=== PATIENT | male | born 1935 | race Two or more races ===

== ENCOUNTER 2016-07-04 17:04 | Inpatient (IN) | payer OTHER, MEDICAID ==
[~2016-07-04] VITALS: Ht 165.1 cm; Wt 58.1 kg
--- NOTE | 2016-07-04 17:13 | NUR ---
BIBPA FROM SNF DUE TO HIGH BLOOD SUGAR, BS UPON ARRIVAL IS GREATER THAN 600. PATIENT IS ALERT HOWEVER NOTED TO HAVE ALTERED MENTAL STATUS. APEARS IN NO APPARENT DISTRESS,. RESPIRATION EVEN AND UNLABORED. NO EVIDENCE OF PAIN OR DISCOMFORT. AFBRILE.PATIENT NOTED WITH RUIGHT WRSIT G 24 IV INTACT. GOWNED -PT AND PLACED ON TELE MONITOR- NOTED TO BE TACHYCARDIC. COMFORT MEASURES INIATED. AWAITING FOR MD YAÑEZ
--- NOTE | 2016-07-04 17:15 | NUR ---
IV ACCESSED TO RIGHT A C20. BLOOD SAMPLE SENT TO LAB
[2016-07-04] MEDS ORDERED: IV SET PRIMARY PUMP SET 1 EA INFUS.SET MC ONE ×5 (17:22→20:36)
[2016-07-04] MEDS ORDERED: IV NS 0.9% 500 ML IV ONE ×2 (17:22→18:32)
[2016-07-04] MEDS ORDERED: IV NS 0.9% 500 ML BAG IV ONE ×2 (17:30→18:30)
--- NOTE | 2016-07-04 17:37 | NUR ---
URINE SAMPLE SENT TO LAB
[2016-07-04 17:39] LABS: BASOPHILS # (AUTO) 0.1 /CMM (0.0-0.2); BASOPHILS % (AUTO) 0.9 % (0.0-2.0); HEMATOCRIT 44 % (39-51); HEMOGLOBIN 14.5 g/dL (13.5-17.5); LYMPHOCYTES # (AUTO) 0.3 /CMM (0.8-4.8); LYMPHOCYTES % (AUTO) 2.5 % (20.0-44.0); MEAN CORPUSCULAR HEMOGLOBIN 32 PG (26.0-33.0); MEAN CORPUSCULAR HGB CONC 33 g/dl (31.0-36.0); MEAN CORPUSCULAR VOLUME 98 fL (80-96); MONOCYTES # (AUTO) 0.2 /CMM (0.1-1.30); NEUTROPHILS # (AUTO) 11.8 /CMM (1.8-8.9); NEUTROPHILS % (AUTO) 94.6 % (43.0-81.0); PLATELET COUNT (AUTO) 321 /CMM (150-450); RDW COEFFICIENT OF VARIATION 13.7 (11.5-15.0); WHITE BLOOD COUNT (AUTO) 12.4 K/uL (4.3-11.0)
--- NOTE | 2016-07-04 17:42 | NUR ---
MD HOFFMAN AT BEDSIDE
--- NOTE | 2016-07-04 17:42 | NUR ---
CREATIVE ART THERAPIST AT FOR BLOOD CULTURE
--- NOTE | 2016-07-04 17:55 | NUR ---
CHEST XRAY AT BEDSIDE FOR CHEST XRAY
[2016-07-04 17:56] LABS: APPEARANCE,URINE Clear (CLEAR); BILIRUBIN,URINE Negative (NEGATIVE); BLOOD, URINE Trace-intact Ery/uL (NEGATIVE); COLOR,URINE Yellow (YELLOW); KETONES,URINE 40 (NEGATIVE); LEUKOCYTE ESTERASE ,URINE Negative (NEGATIVE); NITRITE, URINE Positive (NEGATIVE); PH,URINE 5.5 (5.0-8.0); PROTEIN,URINE Negative (NEGATIVE); UGLUCOSE >=1000 mg/dL (NEGATIVE); UROBILINOGEN,URINE 0.2 EU/dL (0.2)
--- NOTE | 2016-07-04 18:03 | NUR ---
PT WAS TAKEN TO CT FOR HEAD CT
[2016-07-04 18:04] LABS: ALANINE AMINOTRANSFERASE 17 U/L (12-78); ALKALINE PHOSPHATASE 121 U/L (46-116); ASPARTATE AMINOTRANSFERASE 12 U/L (15-37); BILIRUBIN,DIRECT 0.1 mg/dL (0.0-0.2); BILIRUBIN,TOTAL 0.6 mg/dL (0.2-1.0); CARBON DIOXIDE 27 mmol/L (21-32); CHLORIDE 89 mmol/L (98-107); CREATININE 1.6 mg/dL (0.6-1.3); INR 1.06 (0.87-1.13); POTASSIUM 3.9 mmol/L (3.5-5.1); SODIUM SERUM 130 mmol/L (136-145); TOTAL PROTEIN, SERUM 6.8 g/dL (6.4-8.2); TROPONIN I 0.118 ng/mL (0.00-0.056); UREA NITROGEN, BLOOD 41 mg/dL (7-18)
[2016-07-04 18:07] LABS: GLUCOSE 707 mg/dL (74-106)
[2016-07-04 18:10] LABS: ADD URINE CULTURE YES; BACTERIA,URINE Many /HPF (None Seen); RBC,URINE 0-2 /HPF (0-2)
--- NOTE | 2016-07-04 18:10 | NUR ---
PT STILL IN CT
[2016-07-04 18:11] LABS: SQUAMOUS EPITHELIAL CELL,UR Few /HPF (None Seen)
[2016-07-04 18:12] LABS: LACTIC ACID 3.6 mmol/L (0.4-2.0)
--- NOTE | 2016-07-04 18:17 | NUR ---
CALLED NURSING SUP. FOR ICU BED
[2016-07-04] MEDS ORDERED: AZTREONAM 1 G in IV NS 0.9% 100 ML IV ONE (18:30)
[2016-07-04] MEDS ORDERED: LEVOFLOXACIN 750 MG /D5W 150ML 150 ML IV ONE ×2 (18:30→18:32)
[2016-07-04] MEDS ORDERED: IV SET PRIMARY 1 EA INFUS.SET MC ONE (18:33)
[2016-07-04 18:36] LABS: ABG PCO2 30.3 mmHg (35.0-45.0); ABG PH 7.485 (7.350-7.450); ABG PO2 33.5 mmHg (75.0-100.0); ABG TOTAL HEMOGLOBIN 14.8 G/dL (13.5-18.0); MetHb 0.5 % (0.0-1.5); VENT MODE, BG ROOM AIR
[2016-07-04] MEDS ORDERED: IV PREMIX 0.45% NS + KCL 1,000 ML IV ONE (19:04)
[2016-07-04] MEDS ORDERED: IV NS 0.9% 100 ML IV ONE (19:11)
[2016-07-04] MEDS ORDERED: INSULIN REGULAR, HUMAN 100 UNIT/ML 10 ML VIAL ONE (19:12)
[2016-07-04] MEDS ORDERED: INSULIN REGULAR, HUMAN 100 UNIT in IV NS 0.9% 99 ML IV PRN ×2 (19:30)
--- NOTE | 2016-07-04 19:35 | NUR ---
ELIANA HILLMAN SPOKE TO [facility] REGARDING PT ADMISSION.
--- NOTE | 2016-07-04 19:46 | NUR ---
REPOTY GIVEN TO NURSE ED
--- NOTE | 2016-07-04 19:57 | NUR ---
REPORT CALLED TO POT BUILDER KATHY. WILL TRANSPORT PT VIA ACLS PRTOCOL.
[2016-07-04 20:30] VITALS: BP 129/62
[2016-07-04] MEDS ORDERED: INSULIN REGULAR, HUMAN 100 UNIT/ML 3 ML VIAL SQ PRN (20:30)
[2016-07-04] MEDS ORDERED: ONDANSETRON HCL/PF 4 MG/2 ML VIAL IVP PRN (20:30)
[2016-07-04] MEDS ORDERED: MAGNESIUM HYDROXIDE 30 ML UDC PO PRN (20:30)
[2016-07-04] MEDS ORDERED: DEXTROSE 50%-WATER 50 ML DISP.SYRIN IV PRN (20:30)
[2016-07-04] MEDS ORDERED: MAG HYDROX/AL HYDROX/SIMETH 30 ML UDC PO PRN (20:30)
[2016-07-04] MEDS ORDERED: ACETAMINOPHEN 325 MG TABLET PO PRN (20:30)
[2016-07-04] MEDS ORDERED: Z GUARD REMEDY 2 OZ OINT TP PRN (20:30)
[2016-07-04] MEDS ORDERED: ACETAMINOPHEN 650 MG/SUPP.RECT RC PRN (20:30)
--- NOTE | 2016-07-04 20:45 | NUR ---
VIDEO SPECIALIST DF PT HAS ORDER FOR [place] CATH INSERTION. PT WITH HX OF BPH. I AM UNABLE TO INSERT [place] CATHETER 2ND ENLARGED PROSTATE.ADMITTING AR[employer] OFFICER AWARE.
[2016-07-04 21:00] VITALS: BP 123/56
[2016-07-04] MEDS ORDERED: AZTREONAM 1 G in IV NS 0.9% 100 ML IV SCH (21:00)
[2016-07-04] MEDS ORDERED: ASPIRIN 300 MG/SUPP.RECT RC ONE (21:00)
[2016-07-04] MEDS ORDERED: VANCOMYCIN 1 GM in IV D5W 250 ML IV ONE (21:00)
[2016-07-04] MEDS: BLOOD SUGAR DIAGNOSTIC 1 EACH STRIP IN SCH (21:09)
[2016-07-04] MEDS: INSULIN REGULAR, HUMAN 100 UNIT/ML 3 ML VIAL SQ PRN (21:11)
--- NOTE | 2016-07-04 21:19 | NUR ---
TABLE OPERATOR DF PT ACCUC HECK OF 407 COVERED WITH REGULAR INSULIN 20 UNITS.PT WILL RECEIVE LEVEMIR ONCE DELIVERED FROM PHARMACY(AWAITING ORDERED MEDS RX AWARE).EULA ACNP AWARE OF BLOOD GLUCOSE LEVELS ORDER TO DC INSULIN GTT. I REVIEWED PT,S HOME MEDS WITH POOJA FORDE.PT IS ALERT TO PERSON, SPEAKS WITH GAQRBLED SPEECH,UNABLE TO VERBALIZE NEEDS. PT FOLLOWS COMMANDS. MOVES RUE WEAKNESS NOTED TO LEFT UPPER EXTREMITY LEFT LOWER LEG. I S/W PT,S CARLEEN WARD @ [phone]. 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 PT ALSO DX WITH LUEKEMIA A FEW MONTHS AGO PT,S PRIMARY MD MUESH IS ONCOLOGISTS AND PT,S PRIMARY MD. PER FAMILY PT IS MORE VERBAL BUT 2ND TO HYPERGLYCEMIA FAMILY OBSERVED MORE AMS THAN NORMAL AND REQUESTED PT BE TRANSFERRED FROM [facility]. VSS. FEVER 99.0 RECTAL ASPIRIN GIVEN TROPONIN MILDLY ELEVATE NSR ON MONTIOR. PT HAS CARDIOLOGY CONSULT IN AM.
[2016-07-04] MEDS: INSULIN DETEMIR 100 UNIT/ML CARTRIDGE SQ SCH (21:43)
[2016-07-04] MEDS: Potassium Chloride 20 MEQ in IV NS 0.9% 1,000 ML IV PRN (21:46)
[2016-07-04 22:00] VITALS: BP 126/71
[2016-07-04] MEDS ORDERED: FEE PK DOSING 1 MIN EA MC ONE (22:09)
[2016-07-04 22:31] VITALS: BP 145/70
[2016-07-04 23:00] VITALS: BP 117/53
[2016-07-04 23:30] VITALS: BP 112/86
[2016-07-05] VITALS (41 sets, daily range): BP systolic 71–136; BP diastolic 42–76
[2016-07-05] MEDS ORDERED: BLOOD SUGAR DIAGNOSTIC 1 EACH STRIP IN SCH
[2016-07-05 00:26] LABS: CALCIUM, SERUM 7.9 mg/dL (8.5-10.1); CREATININE 1.3 mg/dL (0.6-1.3); POTASSIUM 3.7 mmol/L (3.5-5.1)
[2016-07-05 00:38] LABS: TROPONIN I 0.192 ng/mL (0.00-0.056)
[2016-07-05] MEDS: BLOOD SUGAR DIAGNOSTIC 1 EACH STRIP IN SCH ×6 (00:39→21:21)
[2016-07-05] MEDS: INSULIN REGULAR, HUMAN 100 UNIT/ML 3 ML VIAL SQ PRN ×4 (00:41→21:33)
--- NOTE | 2016-07-05 01:11 | NUR ---
CABLE WIRER DF ACCU CHECK OF 291 COVERED WITH 12 UNITS RISS. BMP RESULTED AT 0000.POCKET SETTER LOCKSTITCH CATHERINE AWARE OF RESULTS.VSS.NAD NOTED.
[2016-07-05] MEDS ORDERED: ALBUTEROL FS 2.5 MG/3 ML VIAL.NEB ONE (02:24)
[2016-07-05] MEDS ORDERED: IPRATROPIUM NEB FS 0.5 MG/2.5 ML AMPUL.NEB ONE (02:25)
[2016-07-05] MEDS: IPRATROPIUM NEB FS 0.5 MG/2.5 ML AMPUL.NEB NEB PRN ×2 (02:30→21:22)
--- NOTE | 2016-07-05 02:30 | NUR ---
RN ICUDF PT WITH CONGESTION PRODUCTIVE COUGH OF THICK WHITE/YELLOW SECRETIONS. PT ABLE TO CLEAR SECRETIONS VIA COUGHING. O2 SAT OF 98% VIA O2 N/C @2LPM RHONCHI THROUGHOUT BREATH SOUNDS. PT ADMIN ATROVENT HHN BY RT DOLORES ALBUTEROL HELD 2ND TO TACHYCARDIA OF 115 BPM. VSS.NAD NOTED.
[2016-07-05 05:01] LABS: BASOPHILS % (AUTO) 0.1 % (0.0-2.0); EOSINOPHILS % (AUTO) 0.1 % (0.0-6.0); HEMATOCRIT 43 % (39-51); HEMOGLOBIN 14.1 g/dL (13.5-17.5); LYMPHOCYTES # (AUTO) 0.5 /CMM (0.8-4.8); LYMPHOCYTES % (AUTO) 7.9 % (20.0-44.0); MEAN CORPUSCULAR HEMOGLOBIN 32 PG (26.0-33.0); MEAN CORPUSCULAR HGB CONC 33 g/dl (31.0-36.0); MEAN CORPUSCULAR VOLUME 98 fL (80-96); MONOCYTES # (AUTO) 0.2 /CMM (0.1-1.30); MONOCYTES % (AUTO) 2.4 % (2.0-12.0); NEUTROPHILS # (AUTO) 5.9 /CMM (1.8-8.9); NEUTROPHILS % (AUTO) 89.5 % (43.0-81.0); PLATELET COUNT (AUTO) 253 /CMM (150-450); RDW COEFFICIENT OF VARIATION 14.3 (11.5-15.0); RED BLOOD CELL COUNT(AUTO) 4.36 MIL/uL (4.5-6.0); WHITE BLOOD COUNT (AUTO) 6.6 K/uL (4.3-11.0)
[2016-07-05] MEDS: Potassium Chloride 20 MEQ in IV NS 0.9% 1,000 ML IV PRN ×2 (05:10→17:38)
[2016-07-05] MEDS: AZTREONAM 1 G in IV NS 0.9% 100 ML IV SCH ×2 (05:11→17:30)
--- NOTE | 2016-07-05 05:11 | NUR ---
MATERIAL CUTTER DF ACCU CHECK OF 112. NO COVERAGE PER ORDERS. PT MORE ALERT MORE INTERACTIVE THAN PRIOR TO ADMISSION. PT FOLLOWING COMMANDS,VSS. 02 SAT OF 98% PT WITH CONGESTION. MIN SOB WITH ACTIVITY. SHIPPING AND RECEIVING WEIGHER EULA AWARE PT HAS PRN HHN AND CHEST PHYSIOTHERAPY ORDERED.
[2016-07-05 05:20] LABS: CREATININE 1.2 mg/dL (0.6-1.3); MAGNESIUM 1.8 mg/dL (1.8-2.4); PHOSPHORUS 1.2 mg/dL (2.5-4.9); POTASSIUM 3.5 mmol/L (3.5-5.1)
[2016-07-05 05:29] LABS: THYROID STIMULATING HORMONE 0.447 uIU/mL (0.358-3.74)
[2016-07-05] MEDS ORDERED: SECONDARY IV SET 1 EA INFUS.SET MC ONE ×3 (05:29→14:06)
[2016-07-05 06:38] LABS: BAND % (MANUAL) 9 % (0.0-5.0); LYMPHOCYTES % (MANUAL) 5 % (16-48); MONOCYTES % (MANUAL) 4 % (0-11.0); NEUTROPHILS % (MANUAL) 82 (42-76); PLATELET ESTIMATE ADEQUATE
[2016-07-05 06:39] LABS: ANISOCYTOSIS 1+
--- NOTE | 2016-07-05 07:15 | NUR ---
DIRECTOR OF EMPLOYEE DEVELOPMENT Bedside report received from [facility] nurse Morfin RN. Pt admitted to icu for ALOC, HHH, NSTEMI. Pt awake, aloc, does not speak, does not follow commands, pupils PERRLA. Pt moves RUE but LUE is flacid, and pt withdraws ble. Pt on 2L n/c tolerating well, spo2 97%. Pt npo at this time, bowel sounds present. Bue and ble pulses present. Pt does not have gregorio and is incontinent. Pt has excoriation in perineum and sacrum. vitals stable. no signs of acute distress at this time. will continue to monitor.
[2016-07-05] MEDS ORDERED: PRAM0.122 PO (08:14)
[2016-07-05] MEDS ORDERED: IPRA3AMP IH (08:14)
[2016-07-05] MEDS ORDERED: MULT-24 PO (08:14)
[2016-07-05] MEDS ORDERED: OMEP20CA10 PO (08:14)
[2016-07-05] MEDS ORDERED: FURO-144 PO (08:14)
[2016-07-05] MEDS ORDERED: AMIN30LI4 PO (08:14)
[2016-07-05] MEDS ORDERED: METF500T4 PO (08:14)
[2016-07-05] MEDS ORDERED: PRED20TA PO (08:14)
[2016-07-05] MEDS ORDERED: ZOLP5TAB7 PO (08:14)
[2016-07-05] MEDS ORDERED: ROSU10TA25 PO (08:14)
[2016-07-05] MEDS ORDERED: ASCO500T9 PO (08:14)
[2016-07-05] MEDS ORDERED: LEVA0.31 IH (08:14)
[2016-07-05] MEDS ORDERED: IPRA12.9 IH (08:14)
[2016-07-05] MEDS ORDERED: ELTR75TA PO (08:14)
[2016-07-05] MEDS ORDERED: TAMS0.4C34 PO (08:14)
[2016-07-05] MEDS ORDERED: ACET-868 PO (08:14)
[2016-07-05] MEDS ORDERED: METO25TA3 PO (08:14)
[2016-07-05] MEDS ORDERED: DOCU-270 PO (08:14)
[2016-07-05] MEDS ORDERED: INSU100V3 SQ (08:14)
[2016-07-05] MEDS ORDERED: BLOO-668 IN (08:14)
[2016-07-05] MEDS ORDERED: POTA20LI4 PO (08:14)
[2016-07-05] MEDS ORDERED: IBRU140C PO (08:14)
--- NOTE | 2016-07-05 08:45 | NUR ---
WOUND CARE CONSULT: PATIENT SEEN AND SKIN ASSESSMENT DONE. PATIENT ALERT, INCONTINENT, NEEDS ASSITS WITH TURNING AND REPOSITIONING DUE TO [place] ZULETA 14, ON HIRAM ISOFLEX ÁLVARO BED. SEE TODAY'S SKIN ASSESSMENT IN PCS ALONG WITH RECOMMENDATIONS. RECOMMEND MOISTURE PROTECTION WITH Z GUARD ORDERED, TURN AND REPOSITION EVERY 2 HRS PATIENT CONDITION PERMITS, OFFLOAD HEELS. ALL DISCUSSED WITH NURSING STAFF. MD IN AGREEMENT WITH PLAN OF CARE. Addendum: 07/05/16 at 0848 by DAVIN NIX WNDNU Amended: Links added.
[2016-07-05] MEDS ORDERED: methylPREDNISolone SOD SUCC 125 MG/2ML VIAL IV SCH (09:00)
[2016-07-05] MEDS: ASPIRIN EC 325 MG TABLET.DR PO SCH ×2 (09:00→09:52)
--- NOTE | 2016-07-05 09:25 | NUR ---
PRODUCE DEPARTMENT SUPERVISOR Dr Emma Oorpeza at bedside assessing pt and udpated on pt status. Md made aware that pt has elevated HR 120s, and pt is aloc. md aware that pt has elevated troponin and 2 loose bm on noc and 1 in am. New orders pending for mg, k and phos replacement per md. other vitals stable. will continue to monitor. Pt to have oncology and cardiology consult per md.
[2016-07-05] MEDS ORDERED: Sodium Phosphate 15 MMOL in IV D5W 250 ML IV ONE (09:30)
[2016-07-05] MEDS ORDERED: POTASSIUM PHOSPHATE MM 15 MMOL in IV D5W 250 ML IV SCH (09:30)
[2016-07-05] MEDS: HYDROGEL DRESSING 90 GM TUBE TP SCH (09:51)
[2016-07-05] MEDS: PANTOPRAZOLE 40 MG VIAL IV SCH (09:51)
--- NOTE | 2016-07-05 10:10 | NUR ---
SHOTBLAST OPERATOR All PO meds held at this time due to pt aloc and inability to swallow. pt high risk for aspiration. charge nurse aware.
--- NOTE | 2016-07-05 10:25 | NUR ---
FINANCE OFFICER network operations technician at bedside doing Echocardiogram. pt tolerating well. vitals stable. will continue to monitor.
[2016-07-05] MEDS ORDERED: ENOXAPARIN SODIUM 60 MG/0.6 ML DISP.SYRIN SQ SCH (10:30)
[2016-07-05] MEDS ORDERED: IV SET PRIMARY PUMP SET 1 EA INFUS.SET MC ONE (10:52)
[2016-07-05] MEDS: Magnesium 1GM/D5W 100ML PREMIX 100 ML IV SCH ×2 (10:57→12:42)
[2016-07-05] MEDS: POTASSIUM PHOSPHATE MM 7.5 MMOL in IV D5W 100 ML IV SCH ×2 (13:55→16:18)
[2016-07-05] MEDS ORDERED: methylPREDNISolone SOD SUCC 125 MG/2ML VIAL IV ONE (14:00)
[2016-07-05] MEDS ORDERED: VANCOMYCIN 1 GM in IV D5W 250 ML IV SCH (15:00)
--- NOTE | 2016-07-05 19:27 | NUR ---
MOTOR AND CONTROLS TESTER Bedside report given to [facility] nurse Zoë MARTINO. Pt asleep, easily arousable. Pt clean and dry. Vitals stable. All lines traced, no signs of acute distress at this time. Transfer pending, endorsed to [facility] nurse.
--- NOTE | 2016-07-05 19:30 | NUR ---
BLIND INSTALLER: PT. RECEIVED WT ALERT AND AWAKE. ON 2L 02 VIA NC WT NO ACUTE DISTRESS. NO C/O PAIN. ABLE TO FOLLOW SIMPLE COMMANDS AND WT GARBLED SPEECH. ON NS WT 20 MEQ KCL RUNNING AT 125ML/HR WT NO S/S OF INFILTRATION ON IV SITE. SR ON MAIL CLERK BILLS. AFEBRILE. ABLE TO COLLECT URINE FOR KETONES VIA CLEAN CATCH. CALLED LAB. FOR SPECIMEN SENIOR DATA DEVELOPER. SAFETY PRECAUTION NOTED. WILL CONTINUE TO MONITOR.
--- NOTE | 2016-07-05 20:56 | NUR ---
Patient is a resident of [facility] [phone], he requires maximum to total assistance with adl's. Will coordinate with [place] block and case maker for any dc planning needs when discharge. Addendum: 07/05/16 at 2055 by NBA ANGELO RN Amended: Links added.
[2016-07-05] MEDS: ALBUTEROL FS 2.5 MG/3 ML VIAL.NEB NEB PRN (21:22)
[2016-07-05] MEDS: INSULIN DETEMIR 100 UNIT/ML CARTRIDGE SQ SCH (21:36)
--- NOTE | 2016-07-05 23:00 | NUR ---
OPERATING ROOM SPECIALIST: REPORT GIVEN TO SALENA ACEVEDO TO TRANSFER PT TO TELE ROOM 312-1.
--- NOTE | 2016-07-05 23:15 | NUR ---
FUR PULLER: PT TRANSFERRED TO ROOM 312-1 IN STABLE CONDITION AND ENDORSED TO SALENA ACEVEDO. A PAIR OF EYEGLASSES WAS ENDORSED WELL. ALL NEEDS MET.
--- NOTE | 2016-07-05 23:30 | NUR ---
SLURRY MAN NOTE: RECEIVED PATIENT FROM ICU IN STABLE CONDITION, NO ACUTE DISTRESS NOTED. BREATHING EVEN AND UNLABORED, NO SOB NOTED. IV TO LAC IN PLACE INFUSING NS WITH 20 MEQ OF KCL AT 125 ML/HR. HL TO RAC ALSO IN PLACE. NO S/S OF HYPER/HYPOGLYCEMIA NOTED. BED LOCKED AND IN LOWEST POSITION, CALL LIGHT IN REACH. WILL CONTINUE TO MONITOR.
[2016-07-06] MEDS: BLOOD SUGAR DIAGNOSTIC 1 EACH STRIP IN SCH ×6 (00:56→21:00)
--- NOTE | 2016-07-06 01:00 | NUR ---
OFFICE SERVICE COORDINATOR NOTE: PATIENT BLOOD SUGAR LEVEL 121 MG/DL, NO INSULIN NEEDED PER SLIDING SCALE. NO S/S OF HYPOGLYCEMIA NOTED. WILL CONTINUE TO MONITOR.
[2016-07-06 04:00] VITALS: BP 108/62
[2016-07-06] MEDS ORDERED: AZTREONAM 1 G VIAL ONE (05:16)
[2016-07-06] MEDS: Potassium Chloride 20 MEQ in IV NS 0.9% 1,000 ML IV PRN ×2 (05:19→18:24)
[2016-07-06] MEDS: INSULIN REGULAR, HUMAN 100 UNIT/ML 3 ML VIAL SQ PRN ×4 (05:25→18:14)
--- NOTE | 2016-07-06 05:30 | NUR ---
CREPING MACHINE OPERATOR HELPER NOTE: PATIENT BLOOD SUGAR LEVEL 170MG/DL, PATIENT TO RECEIVE 4 UNITS OF INSULIN PER SLIDING SCALE. NO S/S OF HYPER/HYPOGLYCEMIA NOTED. PATIENT WITH AZACTAM IV ORDERED, NOT RECEIVED FROM IV DURING TRANSFER. CHECKED WITH ICU AND MEDICATIONS NOT ON THEIR UNIT. AZACTAM MEDICATION PREPARE AND INFUSING PER MD ORDER. WILL CONTINUE TO MONITOR.
[2016-07-06] MEDS ORDERED: IV NS 0.9% 100 ML IV ONE (05:33)
[2016-07-06] MEDS ORDERED: SECONDARY IV SET 1 EA INFUS.SET MC ONE (05:33)
[2016-07-06] MEDS: AZTREONAM 1 G in IV NS 0.9% 100 ML IV SCH ×2 (05:42→18:19)
--- NOTE | 2016-07-06 06:20 | NUR ---
AXLE POLISHER NOTE: PATIENT RESTING IN BED, NO ACUTE DISTRESS NOTED. BREATHING EVEN AND UNLABORED, NO SOB NOTED. IV TO LAC IN PLACE INFUSING NS WITH 20 MEQ OF KCL AT 125 ML/HR. HL TO RAC ALSO IN PLACE. BED LOCKED AND IN LOWEST POSITION, CALL LIGHT IN REACH. WILL ENDORSE TO DAY NURSE TO CONTINUE WITH PLAN OF CARE. Addendum: 07/06/16 at 0631 by CURTIS PIMENTEL RN TELE READING SR 90 WITH PVC
[2016-07-06 06:54] LABS: HEMATOCRIT 36 % (39-51); HEMOGLOBIN 11.7 g/dL (13.5-17.5); LYMPHOCYTES # (AUTO) 0.3 /CMM (0.8-4.8); LYMPHOCYTES % (AUTO) 2.8 % (20.0-44.0); MEAN CORPUSCULAR HEMOGLOBIN 32 PG (26.0-33.0); MEAN CORPUSCULAR HGB CONC 33 g/dl (31.0-36.0); MEAN CORPUSCULAR VOLUME 97 fL (80-96); MONOCYTES # (AUTO) 0.3 /CMM (0.1-1.30); MONOCYTES % (AUTO) 2.7 % (2.0-12.0); NEUTROPHILS # (AUTO) 9.3 /CMM (1.8-8.9); NEUTROPHILS % (AUTO) 94.5 % (43.0-81.0); PLATELET COUNT (AUTO) 171 /CMM (150-450); RDW COEFFICIENT OF VARIATION 14.6 (11.5-15.0); RED BLOOD CELL COUNT(AUTO) 3.71 MIL/uL (4.5-6.0); WHITE BLOOD COUNT (AUTO) 9.9 K/uL (4.3-11.0)
[2016-07-06 07:00] VITALS: BP 128/54
[2016-07-06 07:43] LABS: CALCIUM, SERUM 7.4 mg/dL (8.5-10.1); CREATININE 0.7 mg/dL (0.6-1.3); MAGNESIUM 2.5 mg/dL (1.8-2.4); PHOSPHORUS 2.8 mg/dL (2.5-4.9); POTASSIUM 3.5 mmol/L (3.5-5.1)
--- NOTE | 2016-07-06 07:46 | NUR ---
MILLINERY TEACHER INITIAL NOTES Received patient in bed, asleep, head of bed elevated, no SOB or distress noted, on O2 at 2lpm NC and tolerated well. patient on tele monitor SR with pvc heart rate of 81. IV intact and patent, manisha in lowest position, call light within reach. Will continue to monitor accordingly.
[2016-07-06 08:00] VITALS: BP 113/73
[2016-07-06] MEDS ORDERED: ASPIRIN 300 MG/SUPP.RECT RC SCH (09:00)
[2016-07-06] MEDS: PANTOPRAZOLE 40 MG VIAL IV SCH (09:10)
[2016-07-06] MEDS: ENOXAPARIN SODIUM 60 MG/0.6 ML DISP.SYRIN SQ SCH (09:11)
[2016-07-06] MEDS: HYDROGEL DRESSING 90 GM TUBE TP SCH (09:14)
[2016-07-06 12:00] VITALS: BP 120/49
--- NOTE | 2016-07-06 15:31 | NUR ---
non-admin note- cleared eMar for up-to-date administration of medication. unknown status of administration of medication.
[2016-07-06 16:00] VITALS: BP 115/58
[2016-07-06] MEDS: METOPROLOL SUCCINATE 25 MG TAB.SR.24H PO SCH (16:33)
--- NOTE | 2016-07-06 17:30 | NUR ---
DR. STAHL IN REQUESTING RN CONTACT PT,S ONCOLOGIST FOR HIS RECORDS, WELL TO HAVE PARTNER BRING IN MED BOTTLES FOR REVIEW AND USE-MEDS ESPECIALLY PREDNISONE AND PROMACTA MED.
--- NOTE | 2016-07-06 18:00 | NUR ---
CALL OUT TO PARTNER JOEY GEE-TO BRING MED BOTTLES TONIGHT.
--- NOTE | 2016-07-06 18:25 | NUR ---
JOEY GEE PT,S SPOUSE HERE AND MEDS BROUGHT IN BUT LIST INCOMPLETE.DID HOWEVER BRING IN NON FORMULARY MEDS-CRESTOR,PROMACTA AND OMEPRAZOLE.PPUT IN ENVELOPE AND TO BE LOCKED UP IN PHARM.
--- NOTE | 2016-07-06 18:50 | NUR ---
DIRECTOR APPOINTMENT CLOSING NOTES All needs provided, attended, and anticipated. On tele monitor SR heart rate of 82. kept patient clean and comfortable in bed, call light within patient reach, will continue to monitor accordingly. Endorsed to next shift RN to continue care. Addendum: 07/06/16 at 1858 by ZOHRA VEGA RN med surge patient, not on monitor.
--- NOTE | 2016-07-06 19:10 | NUR ---
ALL INFO REGARDS TO PT,S HOME MEDS AND BAG OF NON FORMULARY MEDS ENDORSED TO ADDIS MARTINO.DAY SHIFT TO FOLLOW UP TOMORROW WITH RESUMING HOME MEDS WITH KATELYN HILLMAN.
[2016-07-06 20:00] VITALS: BP 95/49
--- NOTE | 2016-07-06 20:07 | NUR ---
RCVD REPORT FROM OFFGOING NURSE...NO C/O NOTED AT THIS TIME...CALL LIGHT AVAILABLE AND W/I REACH....SPOUSE AT BEDSIDE...
[2016-07-06] MEDS: INSULIN DETEMIR 100 UNIT/ML CARTRIDGE SQ SCH (21:45)
[2016-07-06] MEDS: ATORVASTATIN 10 MG TABLET PO SCH (22:54)
[2016-07-07] MEDS: BLOOD SUGAR DIAGNOSTIC 1 EACH STRIP IN SCH ×6 (01:00→21:39)
[2016-07-07] MEDS ORDERED: AZTREONAM 1 G VIAL ONE (06:24)
[2016-07-07] MEDS ORDERED: IV D5W 50 ML IV ONE (06:32)
[2016-07-07] MEDS: AZTREONAM 1 G in IV NS 0.9% 100 ML IV SCH (06:45)
[2016-07-07 07:01] LABS: EOSINOPHILS % (AUTO) 0.2 % (0.0-6.0); HEMATOCRIT 39 % (39-51); HEMOGLOBIN 12.4 g/dL (13.5-17.5); LYMPHOCYTES # (AUTO) 0.4 /CMM (0.8-4.8); LYMPHOCYTES % (AUTO) 4.2 % (20.0-44.0); MEAN CORPUSCULAR HEMOGLOBIN 32 PG (26.0-33.0); MEAN CORPUSCULAR HGB CONC 32 g/dl (31.0-36.0); MEAN CORPUSCULAR VOLUME 99 fL (80-96); MONOCYTES # (AUTO) 0.1 /CMM (0.1-1.30); MONOCYTES % (AUTO) 1.3 % (2.0-12.0); NEUTROPHILS # (AUTO) 8.6 /CMM (1.8-8.9); NEUTROPHILS % (AUTO) 94.3 % (43.0-81.0); PLATELET COUNT (AUTO) 151 /CMM (150-450); RDW COEFFICIENT OF VARIATION 14.9 (11.5-15.0); RED BLOOD CELL COUNT(AUTO) 3.94 MIL/uL (4.5-6.0); WHITE BLOOD COUNT (AUTO) 9.2 K/uL (4.3-11.0)
--- NOTE | 2016-07-07 07:04 | NUR ---
d50 not given...fs=82
[2016-07-07 07:08] LABS: CALCIUM, SERUM 7.5 mg/dL (8.5-10.1); CREATININE 0.5 mg/dL (0.6-1.3); MAGNESIUM 2.2 mg/dL (1.8-2.4); PHOSPHORUS 1.4 mg/dL (2.5-4.9); POTASSIUM 3.8 mmol/L (3.5-5.1)
[2016-07-07 08:00] VITALS: BP 118/62
--- NOTE | 2016-07-07 08:00 | NUR ---
MS RN NOTES CALL RECEIVED FROM LAB WITH LACTIC ACID LEVEL OF 2.[address] HAWKINS STATES TO CONTINUE MONITORING. NO NEW ORDERS.
--- NOTE | 2016-07-07 08:00 | NUR ---
MS RN NOTES PATIENT SEEN AND EVALUATED BY DR. HAWKINS. ORDERS NOTED AND CARRIED OUT.
[2016-07-07 08:03] LABS: LACTIC ACID 2.1 mmol/L (0.4-2.0)
[2016-07-07 08:56] LABS: LYMPHOCYTES % (MANUAL) 5 % (16-48); NEUTROPHILS % (MANUAL) 95 (42-76); PLATELET ESTIMATE ADEQUATE
[2016-07-07] MEDS ORDERED: SECONDARY IV SET 1 EA INFUS.SET MC ONE (09:08)
[2016-07-07] MEDS ORDERED: IV SET PRIMARY PUMP SET 1 EA INFUS.SET MC ONE (09:08)
[2016-07-07] MEDS: Magnesium 1GM/D5W 100ML PREMIX 100 ML IV SCH ×2 (09:13→11:07)
[2016-07-07] MEDS: ASPIRIN EC 325 MG TABLET.DR PO SCH (09:14)
[2016-07-07] MEDS: PANTOPRAZOLE 40 MG VIAL IV SCH (09:14)
[2016-07-07] MEDS: LEVOFLOXACIN (500MG) 500 MG TABLET PO SCH (09:14)
[2016-07-07] MEDS: METRONIDAZOLE 500 MG TABLET PO SCH ×2 (09:14→17:11)
[2016-07-07] MEDS: ENOXAPARIN SODIUM 60 MG/0.6 ML DISP.SYRIN SQ SCH (09:15)
[2016-07-07 09:27] LABS: BILIRUBIN,DIRECT 0.1 mg/dL (0.0-0.2); BILIRUBIN,TOTAL 0.5 mg/dL (0.2-1.0)
[2016-07-07 09:31] LABS: LACTIC ACID REFLEX 1.7 mmol/L (0.4-1.9)
[2016-07-07] MEDS ORDERED: BLOOD SUGAR DIAGNOSTIC 1 EACH STRIP IN PRN (10:00)
[2016-07-07] MEDS ORDERED: INSULIN REGULAR, HUMAN 100 UNIT/ML 3 ML VIAL SQ PRN (10:00)
[2016-07-07] MEDS ORDERED: IBRUTINIB 140 MG PO SCH (11:00)
[2016-07-07] MEDS: MULTIVITAMINS,THERAPEUTIC 1 UDTAB TABLET PO SCH (11:07)
[2016-07-07] MEDS: HYDROGEL DRESSING 90 GM TUBE TP SCH (11:07)
[2016-07-07] MEDS: PROSOURCE / PROSTAT (PYXIS) 30 ML UDC PO SCH (11:07)
[2016-07-07] MEDS: TAMSULOSIN 0.4 MG CAP.SR.24H PO SCH (11:07)
[2016-07-07] MEDS: PRAMIPEXOLE DI-HCL 0.25 MG TABLET PO SCH ×2 (12:21→16:10)
[2016-07-07] MEDS ORDERED: K PHOS NEUTRAL 250 MG TABLET PO ONE (13:30)
[2016-07-07] MEDS ORDERED: predniSONE 20 MG TABLET PO SCH ×2 (16:00)
[2016-07-07] MEDS: METOPROLOL SUCCINATE 25 MG TAB.SR.24H PO SCH (16:09)
[2016-07-07] MEDS: ASCORBIC ACID 500 MG TABLET PO SCH (16:09)
[2016-07-07 16:32] VITALS: BP 119/76
[2016-07-07] MEDS: IPRATROPIUM NEB FS 0.5 MG/2.5 ML AMPUL.NEB NEB PRN (17:13)
[2016-07-07] MEDS: ALBUTEROL FS 2.5 MG/3 ML VIAL.NEB NEB PRN (17:13)
[2016-07-07] MEDS: PROMACTA 75 MG PO SCH (19:16)
--- NOTE | 2016-07-07 19:24 | NUR ---
MS RN NOTES PATIENT IN BED RESTING NO SOB OR ACUTE DISTRESS NOTED. ALL DUE MEDICATIONS GIVEN. ALL NEEDS MET. IV INTACT PATENT ON LEFT AC. ENDORSED TO PM SHIFT ANTONIETTA.
[2016-07-07 20:00] VITALS: BP 111/58
[2016-07-07] MEDS: ATORVASTATIN 10 MG TABLET PO SCH (21:14)
[2016-07-07] MEDS ORDERED: INSULIN DETEMIR 100 UNIT/ML CARTRIDGE SQ SCH (22:00)
[2016-07-07] MEDS ORDERED: ZOLPIDEM TARTRATE 5 MG TABLET PO PRN (22:00)
[2016-07-08] MEDS: METRONIDAZOLE 500 MG TABLET PO SCH ×3 (00:54→17:34)
[2016-07-08] MEDS: BLOOD SUGAR DIAGNOSTIC 1 EACH STRIP IN SCH ×4 (00:57→14:08)
[2016-07-08 06:50] LABS: BASOPHILS % (AUTO) 0.1 % (0.0-2.0); HEMATOCRIT 36 % (39-51); HEMOGLOBIN 11.7 g/dL (13.5-17.5); LYMPHOCYTES # (AUTO) 0.2 /CMM (0.8-4.8); LYMPHOCYTES % (AUTO) 3.1 % (20.0-44.0); MEAN CORPUSCULAR HEMOGLOBIN 32 PG (26.0-33.0); MEAN CORPUSCULAR HGB CONC 33 g/dl (31.0-36.0); MEAN CORPUSCULAR VOLUME 97 fL (80-96); MONOCYTES # (AUTO) 0.2 /CMM (0.1-1.30); MONOCYTES % (AUTO) 2.4 % (2.0-12.0); NEUTROPHILS # (AUTO) 7.5 /CMM (1.8-8.9); NEUTROPHILS % (AUTO) 94.4 % (43.0-81.0); PLATELET COUNT (AUTO) 137 /CMM (150-450); RDW COEFFICIENT OF VARIATION 14.7 (11.5-15.0); RED BLOOD CELL COUNT(AUTO) 3.68 MIL/uL (4.5-6.0); WHITE BLOOD COUNT (AUTO) 7.9 K/uL (4.3-11.0)
--- NOTE | 2016-07-08 07:05 | NUR ---
MS RN OPENING NOTES RECEIVED PT FROM NIGHTSHIFT NURSE IN STABLE CONDITION SLEEPING IN BED. NO SOB OR SIGNS OF DISTRESS NOTED. BREATHING EVEN AND UNLABORED. IV ON LEFT AC 20G INTACT AND PATENT/ NO REDNESS OR INFILTRATION NOTED. BED IN LOW LOCKED POSITION, SIDE RAILS UP X2, CALL LIGHT WITHIN REACH. WILL CONTINUE TO MONITOR.
[2016-07-08 07:09] LABS: CALCIUM, SERUM 7.3 mg/dL (8.5-10.1); CREATININE 0.6 mg/dL (0.6-1.3); PHOSPHORUS 2.7 mg/dL (2.5-4.9); POTASSIUM 3.9 mmol/L (3.5-5.1)
[2016-07-08 07:34] LABS: BAND % (MANUAL) 5 % (0.0-5.0); LYMPHOCYTES % (MANUAL) 4 % (16-48); MONOCYTES % (MANUAL) 3 % (0-11.0); NEUTROPHILS % (MANUAL) 88 (42-76)
[2016-07-08 07:35] LABS: PLATELET ESTIMATE DECREASED
[2016-07-08 08:00] VITALS: BP 100/54
[2016-07-08] MEDS ORDERED: PRED20TA PO (08:29)
[2016-07-08] MEDS ORDERED: ATOR10TA PO (08:29)
[2016-07-08] MEDS ORDERED: INSU100I19 SQ (08:29)
[2016-07-08] MEDS ORDERED: METO25TA3 PO (08:29)
[2016-07-08] MEDS ORDERED: Aspirin PO (08:29)
[2016-07-08] MEDS ORDERED: LEVO500T15 PO (08:29)
[2016-07-08] MEDS: ASPIRIN EC 325 MG TABLET.DR PO SCH (09:00)
[2016-07-08] MEDS: ENOXAPARIN SODIUM 60 MG/0.6 ML DISP.SYRIN SQ SCH (09:00)
[2016-07-08] MEDS: LEVOFLOXACIN (500MG) 500 MG TABLET PO SCH (09:28)
[2016-07-08] MEDS: PANTOPRAZOLE 40 MG VIAL IV SCH (09:28)
[2016-07-08] MEDS: TAMSULOSIN 0.4 MG CAP.SR.24H PO SCH (09:28)
[2016-07-08] MEDS: PRAMIPEXOLE DI-HCL 0.25 MG TABLET PO SCH ×3 (09:29→16:25)
[2016-07-08] MEDS: MULTIVITAMINS,THERAPEUTIC 1 UDTAB TABLET PO SCH (09:29)
[2016-07-08] MEDS: METFORMIN 500 MG TABLET PO SCH ×2 (09:30→16:25)
[2016-07-08] MEDS: PROMACTA 75 MG PO SCH (09:30)
[2016-07-08] MEDS: ASCORBIC ACID 500 MG TABLET PO SCH ×2 (09:30→16:24)
[2016-07-08] MEDS: PROSOURCE / PROSTAT (PYXIS) 30 ML UDC PO SCH (09:32)
[2016-07-08] MEDS: HYDROGEL DRESSING 90 GM TUBE TP SCH (09:34)
--- NOTE | 2016-07-08 09:43 | NUR ---
MS RN NOTES 0900 LOVENOX AND ASPIRIN WERE HELD DUE TO LOW PLATELET COUNT OF 137. PT. WAS ASSESSED, AND THERE WERE NO OBVIOUS SIGNS OF BLEEDING WITH THE EXCEPTION OF BLOOD FROM THE PUNCTURE SITE USED TO DRAW LABS. PRESSURE WAS APPLIED TO THE SITE AND THE BLEEDING WAS CONTAINED. WILL FOLLOW UP WITH
[2016-07-08] MEDS ORDERED: *INSULIN REGULAR(HUMULIN R)HUM 100 UNIT/ML VIAL SQ PRN (15:00)
[2016-07-08] MEDS ORDERED: DEXTROSE 50%-WATER 50 ML DISP.SYRIN IV PRN (15:00)
[2016-07-08 16:00] VITALS: BP 118/66
[2016-07-08] MEDS: predniSONE 20 MG TABLET PO SCH (16:24)
[2016-07-08] MEDS: METOPROLOL SUCCINATE 25 MG TAB.SR.24H PO SCH (16:24)
[2016-07-08] MEDS: BLOOD SUGAR DIAGNOSTIC 1 EACH STRIP VI SCH ×2 (17:33→21:32)
[2016-07-08] MEDS: INSULIN REGULAR, HUMAN 100 UNIT/ML 3 ML VIAL SQ PRN (17:37)
--- NOTE | 2016-07-08 18:41 | NUR ---
MS RN CLOSING NOTES PT. AWAKE AND IN BED. SOB NOTED. WHEEZING UPON AUSCULTATION OF UPPER LOBES. LOWER LOBES ARE CLEAR UPON AUSCULTATION. BREATHING EVEN BUT LABORED. RESPIRATORY CALLED FOR PRN NEBULIZER TREATMENT. PT IS CURRENTLY ON 3L O2 VIA NC AND SATING AT 99%. HEAD OF THE BED ELEVATED. IV ON LEFT AC 20G PATENT AND INTACT. NO REDNESS OR INFILTRATION NOTED. PT. REPORTS NO PAIN AT THIS TIME. BED IN LOW LOCKED POSITION, SIDE RAILS UP X2, CALL LIGHT WITHIN REACH. ALL SAFETY MEASURES ENFORCED THROUGHOUT SHIFT AND ALL MD ORDERS CARRIED OU SUCCESSFULLY. WILL CONTINUE TO MONITOR AND ENDORSE TO THE NIGHTSHIFT NURSE FOR ANTONIETTA.
--- NOTE | 2016-07-08 19:00 | NUR ---
RN NOTE RECEIVED REPORT. PT AWAKE AND RESPONSIVE. C/O OF SOB, AWAITING ARRIVAL OF RT. IV INTACT AND PATENT H/L. NON-DIAPHORETIC, SKIN WARM TO TOUCH. HOB ELEVATED 30 DEREES. FAMILY AT [facility], WILL CONT TO MONITOR.
[2016-07-08] MEDS: IPRATROPIUM NEB FS 0.5 MG/2.5 ML AMPUL.NEB NEB PRN (19:26)
[2016-07-08] MEDS: ALBUTEROL FS 2.5 MG/3 ML VIAL.NEB NEB PRN (19:26)
[2016-07-08 20:14] VITALS: BP 119/94
--- NOTE | 2016-07-08 21:00 | NUR ---
RN NOTE EDUCATED FAMILY ON PT DIET - WHAT HE CAN AND CANNOT HAVE, PER ST.
[2016-07-08] MEDS: INSULIN DETEMIR 100 UNIT/ML CARTRIDGE SQ SCH (21:34)
[2016-07-08] MEDS: ATORVASTATIN 10 MG TABLET PO SCH (21:39)
[2016-07-08] MEDS ORDERED: INSULIN DETEMIR 100 UNIT/ML CARTRIDGE SQ SCH (22:00)
[2016-07-09] MEDS: METRONIDAZOLE 500 MG TABLET PO SCH ×3 (01:30→17:05)
--- NOTE | 2016-07-09 03:00 | NUR ---
RN NOTE NO DISTRESS NOTED AT THIS TIME. WILL CONT TO MONITOR.
[2016-07-09] MEDS: BLOOD SUGAR DIAGNOSTIC 1 EACH STRIP VI SCH ×4 (06:42→21:37)
--- NOTE | 2016-07-09 06:43 | NUR ---
RN NOTE NO SIGNIFICANT CHANGES OVERNIGHT. PT SLEPT WELL. NO S/S OF ANY DISTRESS OR DISCOMFORT AT THIS TIME. HOB ELEVATED 30 DEGREES,ASPIRATION PRECAUTIONS RENDERED. KEPT CLEAN AND COMFORTABLE T/O SHIFT. REPOSITIONED Q2HRS. IV INTACT AND PATENT, CALL LIGHT IN REACH. WILL F/U WITH DAY SHIFT FOR ANTONIETTA
[2016-07-09 07:17] LABS: EOSINOPHILS % (AUTO) 0.1 % (0.0-6.0); HEMATOCRIT 31 % (39-51); HEMOGLOBIN 10.4 g/dL (13.5-17.5); LYMPHOCYTES # (AUTO) 0.4 /CMM (0.8-4.8); LYMPHOCYTES % (AUTO) 6.8 % (20.0-44.0); MEAN CORPUSCULAR HEMOGLOBIN 32 PG (26.0-33.0); MEAN CORPUSCULAR HGB CONC 33 g/dl (31.0-36.0); MEAN CORPUSCULAR VOLUME 96 fL (80-96); MONOCYTES # (AUTO) 0.1 /CMM (0.1-1.30); NEUTROPHILS % (AUTO) 91.1 % (43.0-81.0); PLATELET COUNT (AUTO) 213 /CMM (150-450); RDW COEFFICIENT OF VARIATION 14.6 (11.5-15.0); RED BLOOD CELL COUNT(AUTO) 3.26 MIL/uL (4.5-6.0); WHITE BLOOD COUNT (AUTO) 6.6 K/uL (4.3-11.0)
--- NOTE | 2016-07-09 07:30 | NUR ---
AM RN NOTE Received patient sleeping comfortably in his bed no acute distress noted. Resp even and non-labored. IV site intact and patent. Bed in low locked position. Will continue to monitor.
[2016-07-09 07:39] LABS: CALCIUM, SERUM 7.3 mg/dL (8.5-10.1); CREATININE 0.6 mg/dL (0.6-1.3); POTASSIUM 3.8 mmol/L (3.5-5.1)
[2016-07-09 08:00] VITALS: BP 103/49
[2016-07-09] MEDS: PROSOURCE / PROSTAT (PYXIS) 30 ML UDC PO SCH (08:42)
[2016-07-09] MEDS: PANTOPRAZOLE 40 MG VIAL IV SCH (08:42)
[2016-07-09 08:54] LABS: BAND % (MANUAL) 3 % (0.0-5.0); EOSINOPHILS % (MANUAL) 1 % (0-4); MONOCYTES % (MANUAL) 1 % (0-11.0); NEUTROPHILS % (MANUAL) 95 (42-76); PLATELET ESTIMATE ADEQUATE
[2016-07-09 08:55] LABS: ANISOCYTOSIS 1+
[2016-07-09] MEDS: ASPIRIN EC 325 MG TABLET.DR PO SCH (08:56)
[2016-07-09] MEDS: TAMSULOSIN 0.4 MG CAP.SR.24H PO SCH (08:56)
[2016-07-09] MEDS: METFORMIN 500 MG TABLET PO SCH ×2 (08:56→17:06)
[2016-07-09] MEDS: PRAMIPEXOLE DI-HCL 0.25 MG TABLET PO SCH ×3 (08:56→17:06)
[2016-07-09] MEDS: ASCORBIC ACID 500 MG TABLET PO SCH ×2 (08:56→17:06)
[2016-07-09] MEDS: MULTIVITAMINS,THERAPEUTIC 1 UDTAB TABLET PO SCH (08:56)
[2016-07-09] MEDS: LEVOFLOXACIN (500MG) 500 MG TABLET PO SCH (08:56)
[2016-07-09] MEDS: PROMACTA 75 MG PO SCH (09:00)
[2016-07-09] MEDS: HYDROGEL DRESSING 90 GM TUBE TP SCH (09:09)
[2016-07-09] MEDS: ALBUTEROL FS 2.5 MG/3 ML VIAL.NEB NEB SCH ×2 (14:56→20:10)
[2016-07-09] MEDS: IPRATROPIUM NEB FS 0.5 MG/2.5 ML AMPUL.NEB NEB SCH ×2 (14:56→20:09)
[2016-07-09 16:00] VITALS: BP 121/72
[2016-07-09] MEDS: METOPROLOL SUCCINATE 25 MG TAB.SR.24H PO SCH (16:32)
[2016-07-09] MEDS: predniSONE 20 MG TABLET PO SCH (16:32)
[2016-07-09] MEDS: INSULIN REGULAR, HUMAN 100 UNIT/ML 3 ML VIAL SQ PRN (17:18)
--- NOTE | 2016-07-09 17:32 | NUR ---
AM RN NOTE Video swallow results still pending, called Rahul (X-rays) and he will call back with update.
--- NOTE | 2016-07-09 19:01 | NUR ---
AM RN NOTE Video swallow results seen by Dr. Dallas with discharge order. Called Spouse (Tim) made aware and called [facility] spoke with Fallon RN, report given on patient. Will endorse pictures to next shift per CN (Lamberto). Discharge paperwork done. Will endorse to next shift. Patient denies any pain or discomfort at this time.
--- NOTE | 2016-07-09 19:27 | NUR ---
AM RN NOTE Pt's home medications endorsed to next shift nurse (received from pharmacy) for discharge.
--- NOTE | 2016-07-09 19:30 | NUR ---
RN NOTE RECEIVED REPORT. NO DISTRESS NOTED AT THIS TIME. ASPIRATION PRECAUTIONS RENDERED, ALL NEEDS ATTENED TO, WILL CONT TO MONITOR.
[2016-07-09 20:58] VITALS: BP 121/59
[2016-07-09] MEDS: ATORVASTATIN 10 MG TABLET PO SCH (21:37)
[2016-07-09] MEDS: INSULIN DETEMIR 100 UNIT/ML CARTRIDGE SQ SCH (21:41)
--- NOTE | 2016-07-09 22:00 | NUR ---
RN NOTE AMBULANCE ARRIVED FOR PT DISCHARGE TO [facility]. PAPERWORK SIGNED, MEDICATIONS RETURNED, IV D/C'ED. VSS. NO DISTRESS NOTED AT THIS TIME. BREATHING NON-L;ABORED AND EVEN. DUE MEDS GIVEN, WELL LEVEMIR 12 UNITS. PICTURES TAKEN, REPORT GIVEN TO FIREBRICK LAYER. PT LEFT WITH ALL BELONGINGS.
== END 2016-07-09 22:00 | DRG 871 ==
LOC: ER 17:07 → ICU 19:34 → TELE 07-05 23:02 → MED 07-06 12:32
PROVIDERS: ADMIT Nurse Practitioner Acute Care; ATTEND Internal Medicine
DX: A41.9 Sepsis, unspecified organism (principal); N17.0 Acute kidney failure with tubular necrosis; G93.41 Metabolic encephalopathy; J18.9 Pneumonia, unspecified organism; I21.4 Non-ST elevation (NSTEMI) myocardial infarction; E13.10 Other specified diabetes mellitus with ketoacidosis without coma; N18.4 Chronic kidney disease, stage 4 (severe); N39.0 Urinary tract infection, site not specified; C91.10 Chronic lymphocytic leukemia of B-cell type not having achieved remission; E87.3 Alkalosis; I69.854 Hemiplegia and hemiparesis following other cerebrovascular disease affecting left non-dominant side; E87.1 Hypo-osmolality and hyponatremia; D69.3 Immune thrombocytopenic purpura; I12.9 Hypertensive chronic kidney disease with stage 1 through stage 4 chronic kidney disease, or unspecified chronic kidney disease; E78.5 Hyperlipidemia, unspecified; E86.0 Dehydration; I48.91 Unspecified atrial fibrillation; K21.9 Gastro-esophageal reflux disease without esophagitis; N40.0 Benign prostatic hyperplasia without lower urinary tract symptoms; Z79.4 Long term (current) use of insulin; E87.8 Other disorders of electrolyte and fluid balance, not elsewhere classified; E86.1 Hypovolemia; T38.0X5A Adverse effect of glucocorticoids and synthetic analogues, initial encounter; Y92.89 Other specified places as the place of occurrence of the external cause; B96.89 Other specified bacterial agents as the cause of diseases classified elsewhere; F03.90 Unspecified dementia, unspecified severity, without behavioral disturbance, psychotic disturbance, mood disturbance, and anxiety; R65.20 Severe sepsis without septic shock
CPT/HCPCS: 36415; 36600; 70450-TC; 71010-TC; 74230-TC; 80048-TC; 80061-TC; 80076-TC; 80202-TC; 81000-TC; 82010-TC; 82247-TC; 82248-TC; 82962-TC; 83605-TC; 83735-TC; 83935-TC; 84100-TC; 84300-TC; 84443-TC; 84484-TC; 85025-TC; 85730-TC; 87040-TC; 87081-TC; 87086-TC; 92611-TC; 93307-TC; 94799-TC; A4606; A6248; A9563; C9113; J1650; J1815; J1956; J2930; J3370; J3475; J3480; J3490; J7030; J7040; J7060; Z7610